=== PATIENT | female | born 1990 | race Caucasian/White ===

== ENCOUNTER 2021-03-03 17:41 | Emergency (ER) | payer MEDICAID ==
[~2021-03-03] VITALS: Ht 160 cm; Wt 95.3 kg
[2021-03-03 18:21] VITALS: BP 117/79
--- NOTE | 2021-03-03 19:29 | NUR ---
PER DONOVAN RODRIGUES PT WILL RETURN TOMORROW. PATIENT ELOPED FROM FACILITY. DISCHARGE INSTRUCTIONS NOT GIVEN TO PATIENT.
[2021-03-04] MEDS ORDERED: NAPR-54 PO (07:39)
[2021-03-04] MEDS ORDERED: SULF-59 PO (07:39)
== END 2021-03-03 19:29 | disposition left against medical advice (07) ==
LOC: MED 17:41
DX: M54.5 Low back pain (principal); Z88.0 Allergy status to penicillin
CPT/HCPCS: 99281

== ENCOUNTER 2021-03-04 06:39 | Emergency (ER) | payer MEDICAID ==
[~2021-03-04] VITALS: Ht 160 cm; Wt 103.9 kg
[2021-03-04 07:10] VITALS: BP 117/73
--- NOTE | 2021-03-04 07:13 | NUR ---
Dr. Palomino examining patient.
--- NOTE | 2021-03-04 07:13 | NUR ---
PT TAKEN TO BED 4
--- NOTE | 2021-03-04 07:17 | NUR ---
30 Y/O FEMALE C/O LOWER BACK PAIN 03/29 DESCRIBES SHARP. STATES +N, DENIES FEVER/CHILLS. AREA IS SWOLLEN, RED, NOTED PUS AT SITE. DENIES PMH ALLERGIES: PCN
[2021-03-04] MEDS ORDERED: LIDOCAINE MPF 1% 5 ML ONE (07:24)
[2021-03-04] MEDS ORDERED: NAPR-54 PO (07:39)
[2021-03-04] MEDS ORDERED: SULF-59 PO (07:39)
[2021-03-04] MEDS ORDERED: LIDOCAINE/EPI 1% 1:100000 20 ML VIAL INJ ONE (07:40)
[2021-03-04] MEDS ORDERED: ACETAMINOPHEN EXTRA STRENGTH 500 MG TAB PO ONE (07:45)
[2021-03-04] MEDS ORDERED: ACETAMINOPHEN EXTRA STRENGTH 500 MG TAB ONE (07:46)
[2021-03-04 07:50] VITALS: BP 120/78
--- NOTE | 2021-03-04 07:52 | NUR ---
Patient discharged with v/s stable. Written and verbal after care instructions given PILONDIAL CYST DRAINAGE and explained. Patient alert, oriented and verbalized understanding of instructions. Ambulatory with steady gait. All questions addressed prior to discharge. ID band removed. Patient advised to follow up with PMD. Rx of NAPROXEN 500MG PO BID PRN PAIN, AND BACTRIM PO FOR INFECTION given. Patient educated on indication of medication including possible reaction and side effects. Opportunity to ask questions provided and answered.
== END 2021-03-04 07:52 | disposition home or self-care (01) ==
LOC: MED 06:39
DX: L05.01 Pilonidal cyst with abscess (principal)
CPT/HCPCS: 10080; 99284; J2001